=== PATIENT | male | born 1970 | race Caucasian/White ===

== ENCOUNTER 2021-10-16 06:08 | Day surgery (SDC) | payer BC ==
[~2021-10-16 06:08] MED LIST: Dextrose 5%-0.45% NaCl 1,000 ML IV SCH; Sodium Chloride 0.9% 10 ML Syringe FLUSH PRN; Sodium Chloride 0.9% 10 ML Syringe FLUSH SCH
[2021-10-16] MEDS ORDERED: Midazolam 1 MG/ML 2 ML SDV ONE (06:11)
[2021-10-16] MEDS ORDERED: fentaNYL 100 MCG/2 ML SDV ONE (06:11)
[2021-10-16] MEDS ORDERED: Sodium Chloride 0.9% 10 ML Syringe FLUSH PRN (06:30)
[2021-10-16] MEDS: Dextrose 5%-0.45% NaCl 1,000 ML IV SCH (06:35)
[2021-10-16] MEDS: fentaNYL 100 MCG/2 ML SDV IV ONE ×2 (06:57→06:58)
[2021-10-16] MEDS: Midazolam 1 MG/ML 2 ML SDV IV ONE ×6 (06:58→07:08)
[2021-10-16] MEDS ORDERED: Sodium Chloride 0.9% 10 ML Syringe FLUSH SCH (09:00)
== END 2021-10-16 09:20 | disposition home or self-care (01) ==
LOC: DL.ENDO 06:08
PROVIDERS: ATTEND Internal Medicine Gastroenterology
DX: D12.2 Benign neoplasm of ascending colon (principal); K57.30 Diverticulosis of large intestine without perforation or abscess without bleeding; F17.210 Nicotine dependence, cigarettes, uncomplicated; E66.09 Other obesity due to excess calories; F41.1 Generalized anxiety disorder; F12.90 Cannabis use, unspecified, uncomplicated; Z98.890 Other specified postprocedural states; Z01.812 Encounter for preprocedural laboratory examination; Z20.822 Contact with and (suspected) exposure to COVID-19
CPT/HCPCS: J2250; J3010; J7042; U0002